=== PATIENT | female | born 1980 | race Caucasian/White ===

== ENCOUNTER 2020-10-20 10:43 | Emergency (ER) | payer OTHER ==
[2020-10-20 11:00] VITALS: BP 132/78
--- NOTE | 2020-10-20 11:29 | XRAY Report ---
PROCEDURE: Ankle 3 View LT INDICATIONS: Trauma TECHNIQUE: 3 views of the ankle were acquired. COMPARISON: None FINDINGS: Bones: No fractures or dislocations. Ankle mortise is normally aligned. No suspicious bony lesions . Soft tissues: No tibiotalar joint effusion. Achilles tendon appears normal. IMPRESSION: No acute fracture. No osseous lesion. If symptoms and/or clinical suspicion for patholog y continue, further assessment with repeat plain films, or advanced imaging (e.g., CT, MRI, or bone s can) is recommended for further assessment. Reviewed by: Brii Leblanc MD on 10/20/2020 10:28 AM JUSTINE Approved by: Brii Leblanc MD on 10/20/2020 10:28 AM JUSTINE Station ID: [id number]
--- NOTE | 2020-10-20 11:36 | ED Physician Documentation ---
History of Present Illness - Stated complaint Stated Complaint: L ANK PX - Chief complaint Chief Complaint: Trauma Ext - History obtained from History obtained from: Patient - Additonal information Additional information: 40-year-old woman twisted her ankle on the left side after falling down 2 steps on a ladder. She does have prior history of injury to this ankle. Ambulatory on the ankle with some discomfort. minimal swelling. Full range of motion of the ankle. Review of Systems Skin: denies: Lesions Musculoskeletal: reports: Extremity pain Neurologic: denies: Focal weakness, Numbness PD PAST MEDICAL HISTORY - Past Medical History Past Medical History: No - Past Surgical History Past Surgical History: No - Present Medications Home Medications: Ambulatory Orders Medication Instructions Recorded Confirmed Citalopram [CeleXA] 5 mg PO DAILY 10/20/20 10/20/20 - Allergies Allergies/Adverse Reactions: Allergies Allergy/AdvReac Type Severity Reaction Status Date / Time prednisone Allergy Anxiety Verified 10/20/20 10:55 - Social History Does the pt smoke?: Yes Smoking Status: Current every day smoker Does the pt drink ETOH?: No Does the pt have substance abuse?: Yes Substance Use and Type: Marijuana - Immunizations Immunizations are current?: Yes PD ED PE NORMAL - Vitals Vital signs reviewed: Yes - General General: Alert and oriented X 3, No acute distress, Well developed/nourished - HEENT HEENT: Atraumatic, PERRL, EOMI - Derm Derm: Normal color, Warm and dry - Extremities Extremities: No deformity, Normal ROM s pain, Other (ambulatory without difficulty. no bony ttp. mild discomfort in ligamentous distribution along lateral L ankle. 2+ DP pulse.) Results - Vitals Vitals: Vital Signs - 24 hr 10/20/20 10:52 Temperature 36.7 C Heart Rate 74 Respiratory 16 Rate Blood Pressure 132/78 H O2 Saturation 99 Oxygen O2 Source Room air PD MEDICAL DECISION MAKING - ED course ED course: 40-year-old woman presented with an ankle sprain. Return precautions given. She will follow up with her primary doctor. Education given. Departure - Departure Disposition: 01 Home, Self Care Clinical Impression: Ankle injury Condition: Good Instructions: ED Sprain Ankle, ED RICE Comments: You were seen in the emergency department for evaluation of ankle pain. There are no breaks in the bone on x-ray. Please return to the emergency department if you have any new or worsening symptoms or other concerns. Follow up with your primary doctor. Enjoy the wedding!
== END 2020-10-20 11:52 | disposition home or self-care (01) ==
LOC: ED 10:43
DX: S93.402A Sprain of unspecified ligament of left ankle, initial encounter (principal); W11.XXXA Fall on and from ladder, initial encounter; F17.200 Nicotine dependence, unspecified, uncomplicated
CPT/HCPCS: 99282; 99283